=== PATIENT | female | born 1995 | race African-American/Black ===

== ENCOUNTER 2018-07-14 13:46 | Emergency (ER) | payer MEDICAID, OTHER ==
[2018-07-14] MEDS ORDERED: PYRIDOXINE HCL INJ 100 MG/1 ML VIAL IM ONE (15:16)
--- NOTE | 2018-07-14 15:18 | ER Document Report ---
ED Medical Screen (RME) - General Chief Complaint: Abdominal Pain Stated Complaint: ABDOMINAL PAIN Time Seen by Provider: 07/14/18 15:15 Primary Care Provider: TIERRA DODD MD [Primary Care Provider] - Follow up as needed Mode of Arrival: Ambulatory Information source: Patient Notes: 22-year-old female presents to ED for complaint of severe abdominal pain nausea and vomiting. She is 10 weeks . She states she is not having any vaginal bleeding or discharge. She denies any pain or discomfort with urination. She does not have any frequency or urgency. She states she did have a ultrasound a week ago and the baby was in the uterus. She states she is 2 para 1. She does not smoke drink or do any drugs. 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 Only surgery is breast reduction. I have greeted and performed a rapid initial assessment of this patient. A comprehensive ED assessment and evaluation of the patient, analysis of test results and completion of medical decision making process will be conducted by an additional ED providers. TRAVEL OUTSIDE OF THE [place] IN LAST 30 DAYS: No - Related Data Allergies/Adverse Reactions: No Known Allergies Allergy (Verified 07/14/18 15:16) Physical Exam - Vital signs Vitals: Temp Pulse Resp BP Pulse Ox 98.5 F 99 18 134/73 H 100 07/14/18 14:03 07/14/18 14:03 07/14/18 14:03 07/14/18 14:03 07/14/18 14:03 Course - Vital Signs Vital signs: Temp Pulse Resp BP Pulse Ox 98.5 F 99 18 134/73 H 100 07/14/18 14:03 07/14/18 14:03 07/14/18 14:03 07/14/18 14:03 07/14/18 14:03 Doctor's Discharge - Discharge Referrals: TIERRA DODD MD [Primary Care Provider] - Follow up as needed
[2018-07-14 16:02] LABS: APPEARANCE,URINE SLIGHTLY-CLOUDY; BILIRUBIN,URINE NEGATIVE (NEGATIVE); COLOR,URINE YELLOW; GLUCOSE, URINE NEGATIVE (NEGATIVE); KETONES,URINE 80 mg/dL (NEGATIVE); LEUKOCYTE ESTERASE,URINE NEGATIVE (NEGATIVE); NITRITE,URINE NEGATIVE (NEGATIVE); PROTEIN,URINE NEGATIVE (NEGATIVE)
[2018-07-14 16:04] LABS: ABSOLUTE EOSINOPHILS # (AUTO) 0.4 10^3/uL (0.0-0.6); ABSOLUTE LYMPHOCYTES (AUTO) 1.6 10^3/uL (0.5-4.7); ABSOLUTE MONOCYTES (AUTO) 0.7 10^3/uL (0.1-1.4); ABSOLUTE NEUT (AUTO) 6.2 10^3/uL (1.7-8.2); BASOPHILS % (AUTO) 0.4 % (0-2); EOSINOPHILS % (AUTO) 4.1 % (0-6); HEMATOCRIT 41.1 % (36.0-47.0); HEMOGLOBIN 13.6 g/dL (12.0-15.5); LYMPHOCYTES % (AUTO) 17.9 % (13-45); MEAN CORPUSCULAR HEMOGLOBIN 27.4 pg (27.0-33.4); MEAN CORPUSCULAR HGB CONC 33.1 g/dL (32.0-36.0); MEAN CORPUSCULAR VOLUME 83 fl (80-97); MONOCYTES % (AUTO) 7.8 % (3-13); PLATELET COUNT 394 10^3/uL (150-450); RED BLOOD COUNT 4.96 10^6/uL (3.72-5.28); RED CELL DISTRIBUTION WIDTH 12.5 % (11.5-14.0); SEGMENTED NEUTROPHILS % (AUTO) 69.8 % (42-78); TOTAL CELLS COUNTED % (AUTO) 100 %; WHITE BLOOD COUNT 8.8 10^3/uL (4.0-10.5)
[2018-07-14 16:27] LABS: ALANINE AMINOTRANSFERASE 20 U/L (9-52); ALKALINE PHOSPHATASE 67 U/L (38-126); ANION GAP 13 (5-19); ASPARTATE AMINO TRANSFERASE 20 U/L (14-36); BILIRUBIN,DIRECT 0.3 mg/dL (0.0-0.4); BLOOD UREA NITROGEN 4 mg/dL (7-20); CARBON DIOXIDE 22 mmol/L (22-30); CHLORIDE 107 mmol/L (98-107); LIPASE 37.1 U/L (23-300); POTASSIUM 4.5 mmol/L (3.6-5.0); SODIUM 141.7 mmol/L (137-145); TOTAL PROTEIN 6.9 g/dL (6.3-8.2)
[2018-07-14 16:40] LABS: GLUCOSE 66 mg/dL (75-110)
--- NOTE | 2018-07-14 17:28 | ER Document Report ---
ED General - General Chief Complaint: Abdominal Pain Stated Complaint: ABDOMINAL PAIN Time Seen by Provider: 07/14/18 15:15 Primary Care Provider: TIERRA DODD MD [COMMUNITY BASED STAFF] - Follow up as needed Mode of Arrival: Ambulatory Information source: Patient Notes: This is a 22-year-old female 2 para 1 approximately 10 weeks who presents to the emergency room with lower abdominal pain. Patient does report she had some vomiting earlier. She denies any vaginal bleeding. The pain has been recurrent and has slowed up lately. Currently she is in no distress. TRAVEL OUTSIDE OF THE [place] IN LAST 30 DAYS: No - HPI Onset: Yesterday Onset/Duration: Gradual Quality of pain: Sharp Severity: Mild Pain Level: 1 Associated symptoms: denies: Chest pain, Fever, Shortness of breath Exacerbated by: Movement Relieved by: Remaining still Similar symptoms previously: No Recently seen / treated by doctor: No - Related Data Allergies/Adverse Reactions: No Known Allergies Allergy (Verified 07/14/18 15:16) Past Medical History - General Information source: Patient - Social History Smoking Status: Never Smoker Cigarette use (# per day): No Chew tobacco use (# tins/day): No Frequency of alcohol use: None Drug Abuse: None Lives with: Family Family History: Reviewed & Not Pertinent Patient has suicidal ideation: No Patient has homicidal ideation: No - Medical History Medical History: Negative Renal/ Medical History: Denies: Hx Peritoneal Dialysis Surgical Hx: Negative Review of Systems - Review of Systems Constitutional: denies: Chills, Fever EENT: No symptoms reported Cardiovascular: No symptoms reported Respiratory: No symptoms reported Gastrointestinal: See HPI Genitourinary: No symptoms reported Female Genitourinary: See HPI Musculoskeletal: No symptoms reported Skin: No symptoms reported Hematologic/Lymphatic: No symptoms reported Neurological/Psychological: No symptoms reported Physical Exam - Vital signs Vitals: Temp Pulse Resp BP Pulse Ox 98.5 F 99 18 134/73 H 100 07/14/18 14:03 07/14/18 14:03 07/14/18 14:03 07/14/18 14:03 07/14/18 14:03 Notes: Physical exam: GENERAL: Patient is alert and oriented x3, no acute distress HEAD: Atraumatic, normocephalic. EYES: Pupils equal round and reactive to light, extraocular movements intact, sclera anicteric, conjunctiva are normal. ENT: TMs normal, nares patent, oropharynx clear without exudates. Moist mucous membranes. NECK: Normal range of motion, supple without obvious mass or JVD. LUNGS: Breath sounds clear to auscultation bilaterally and equal. No wheezes rales or rhonchi. HEART: Regular rate and rhythm without murmurs, rubs or gallops. ABDOMEN: Soft, normoactive bowel sounds. No tenderness to palpation. No guarding, no rebound. No masses appreciated. EXTREMITIES: Normal range of motion, no pitting or edema. No clubbing or cyanosis. NEUROLOGICAL: Cranial nerves II through XII grossly intact. Normal speech, moving all extremities. PSYCH: Normal mood, normal affect. SKIN: Warm, Dry, normal turgor, no rashes or lesions noted. Course - Re-evaluation Re-evalutation: 07/14/18 21:04 Repeat exam: Patient is calm, abdomen is soft and nontender. Patient is happy to hear about the results of the ultrasound and she is smiling. She has tolerated some p.o. And will be for discharge. - Vital Signs Vital signs: Temp Pulse Resp BP Pulse Ox 98.5 F 99 18 134/73 H 100 07/14/18 14:03 07/14/18 14:03 07/14/18 14:03 07/14/18 14:03 07/14/18 14:03 - Laboratory Result Diagrams: 07/14/18 15:32 07/14/18 15:32 Laboratory results interpreted by me: 07/14/18 07/14/18 07/14/18 15:32 15:32 15:32 BUN 4 L Creatinine 0.51 L Glucose 66 L Beta HCG, Quant 678590.00 H Urine Ketones 80 H Urine Urobilinogen 2.0 H - Diagnostic Test Radiology reviewed: Image reviewed, Reports reviewed - Transvaginal ultrasound shows a viable intrauterine Discharge - Discharge Clinical Impression: Round ligament strain Condition: Stable Disposition: HOME, SELF-CARE Additional Instructions: As we discussed, the ultrasound showed a viable intrauterine at approximately 10 weeks gestation. The baby's heartbeat look good. I want you to rest, drink plenty of fluids, advance diet as tolerated. Take Tylenol for any cramping. Avoid intercourse for 2 weeks. Avoid heavy lifting. No ibuprofen, aspirin. Will up with your OB doctor. Return to the emergency room for worsening pain, vaginal bleeding or any concerns or getting worse. Nausea/Vomiting in : Eating small, frequent meals are recommended. Over the counter Pyridoxine (Vitamin B6) and Doxylamine daily has been found helpful with nausea and vomiting. Aria and peppermint products can help. Accupressure maybe helpful. You can find more information about accupressure online: [email or web address] Sea-bands are relatively inexpensive and can help with nausea. Forms: Return to Work Referrals: TIERRA DODD MD [COMMUNITY BASED STAFF] - Follow up as needed
--- NOTE | 2018-07-14 19:07 | RADIOLOGY REPORT (SQ) ---
EXAM DESCRIPTION: U/S OB TRANSVAGINAL W/O DOP COMPLETED DATE/TIME: 07/14/2018 6:54 pm REASON FOR STUDY: 10 weeks by dates-abd pain COMPARISON: None. TECHNIQUE: Transabdominal static and realtime grayscale images acquired of the pelvis. Additional se lected spectral and color Doppler images recorded. All images stored on PACs. bHCG: None available CLINICAL DATES: Last menses 05/04/2018 (ANA MARÍA 02/08/2019) LIMITATIONS: None. FINDINGS: FETUS: Single Living intrauterine . ULTRASOUND EGA: 9 weeks 5 days ULTRASOUND ANA MARÍA: 02/11/2019 EFW: Not applicable less than 20 weeks. CRL: 3 cm FHR: 158 beats per minute. SURVEY: Too early to assess. AMNIOTIC FLUID: Adequate amount. PLACENTA: Not yet developed due to early gestation. SUBCHORIONIC BLEED: Yes SIZE OF BLEED: Small subchorionic hemorrhage 1.3 x 0.5 cm in size UTERUS: No masses. No anomalies. Uterus is 9 x 8 x 9 cm. CERVICAL LENGTH: 3 cm Closed. RIGHT ADNEXA: Normal ovary with normal vascular flow. Right ovary is 4.3 x 2.9 x 2 cm in size with a 13 mm cyst likely the corpus luteum. No adnexal free fluid. No adnexal masses. LEFT ADNEXA: Ovary not identified due to poor acoustical window. No adnexal free fluid. No adnexal masses. FREE FLUID: None. OTHER: No other significant finding. IMPRESSION: LIVING INTRAUTERINE . EGA 9 weeks 5 days Trimester of : First - 0 to 13 weeks. TECHNICAL DOCUMENTATION: JOB ID: [id number] [employer]- All Rights Reserved rev-07/24 Reading location - IP/workstation name: [email or web address]
[2018-07-14 21:04] VITALS: BP 111/68
== END 2018-07-14 21:09 | disposition home or self-care (01) ==
LOC: ER 13:46
DX: O26.899 Other specified pregnancy related conditions, unspecified trimester (principal); R10.30 Lower abdominal pain, unspecified; O21.9 Vomiting of pregnancy, unspecified; Z3A.00 Weeks of gestation of pregnancy not specified
CPT/HCPCS: 99284; 96372; 36415; 82553; 84702; 83690; 85025; 80053; 81001; 76817; J3415